=== PATIENT | female | born 1985 | race Two or more races ===

== ENCOUNTER 2016-07-29 12:54 | Outpatient (CLI) | payer OTHER | END 2016-07-29 12:55 | disposition home or self-care (01) | DX: R06.02 Shortness of breath (principal) ==

== ENCOUNTER 2017-10-16 15:14 | Emergency (ER) | payer OTHER ==
[2017-10-16 15:39] LABS: BASOPHILS # (AUTO) 0.1 10^3/uL (0.0-0.1); BASOPHILS % (AUTO) 0.5 %; EOSINOPHILS # (AUTO) 0.1 10^3/uL (0.0-0.7); EOSINOPHILS % (AUTO) 0.7 %; HGB - HEMOGLOBIN 15.5 g/dL (12.0-16.0); LYMPHOCYTES # (AUTO) 2.5 10^3/uL (1.5-3.5); LYMPHOCYTES % (AUTO) 22.4 %; MEAN CORPUSCULAR HEMOGLOBIN 29.5 pg (27.0-31.0); MEAN CORPUSCULAR HGB CONC 34.6 g/dL (32.0-36.0); MEAN CORPUSCULAR VOLUME 85.2 fL (81.0-99.0); MEAN PLATELET VOLUME 8.4 fL (7.9-10.8); MONOCYTES # (AUTO) 0.5 10^3/uL (0.0-1.0); MONOCYTES % (AUTO) 4.5 %; NEUTROPHILS # (AUTO) 7.9 10^3/uL (1.5-6.6); NEUTROPHILS % (AUTO) 71.9 %; PLT - PLATELET COUNT 225 10^3/uL (130-450); RED BLOOD COUNT 5.26 10^6/uL (4.20-5.40); RED CELL DISTRIBUTION WIDTH 12.5 % (12.0-15.0)
[2017-10-16] MEDS ORDERED: SODIUM CHLORIDE 0.9% 1,000 ML IV ONE (15:40)
[2017-10-16] MEDS: PROMETHAZINE INJ 25 MG in SODIUM CHLORIDE 0.9% 50 ML IV STA ×2 (15:47→16:04)
[2017-10-16 15:54] LABS: ALBUMIN 5.2 g/dL (3.2-5.5); ALBUMIN/GLOBULIN RATIO 1.4 (1.0-2.2); BILIRUBIN,TOTAL 1.1 mg/dL (0.2-1.0); CALCIUM 9.8 mg/dL (8.5-10.3); CREATININE 0.7 mg/dL (0.4-1.0); TOTAL PROTEIN 8.8 g/dL (6.7-8.2)
[2017-10-16] MEDS ORDERED: ACETAMINOPHEN 1,000 MG/100 ML 100 ML IV STA (15:55)
[2017-10-16] MEDS ORDERED: ONDANSETRON 4 MG/2 ML VIAL IVP STA (15:55)
--- NOTE | 2017-10-16 16:02 | ED Physician Documentation ---
History of Present Illness - Stated complaint Stated Complaint: ABD PX/VOMITING - Chief complaint Chief Complaint: Abd Pain - Additonal information Additional information: hx from pt 32 female healthy no porior abd surgery not preg has IUD breast feeding a 20 m old had vegan mac n cheese for lunch while out for a run developed severe upper abd pain radiating to the back - intermittent severe colicky NV no diarrhea no fever hx similar dx GB dysfxn by YG Review of Systems Constitutional: denies: Fever, Chills Cardiac: denies: Chest pain / pressure Respiratory: denies: Dyspnea GI: reports: Abdominal Pain, Nausea, Vomiting. denies: Diarrhea : denies: Now EGA Endocrine: denies: Easy bruising / bleeding Immunocompromised: denies: Immunocompromised PD PAST MEDICAL HISTORY - Past Medical History Past Medical History: Yes Other Past Medical History: IBS, renauds - Past Surgical History Past Surgical History: No - Present Medications Home Medications: Ambulatory Orders Medication Instructions Recorded Confirmed No Known Home Medications [No 10/16/17 10/16/17 Known Home Medications] - Allergies Allergies/Adverse Reactions: Allergies Allergy/AdvReac Type Severity Reaction Status Date / Time sodium hypochlorite solution Allergy Anaphylaxis Verified 10/16/17 15:23 [From Anasept] - Social History Does the pt smoke?: No Smoking Status: Never smoker Does the pt drink ETOH?: Yes Does the pt have substance abuse?: No - Immunizations Immunizations are current?: Yes PD ED PE NORMAL - Vitals Vital signs reviewed: Yes - Cardiac Cardiac: No murmur - Respiratory Respiratory: No respiratory distress - Abdomen Abdomen: Soft, Non tender, Other (but int curls up is sever pain clutching her flanks and vomiting, then sx relent again) - Back Back: No CVA TTP (having pain but palp does not change) - Derm Derm: Normal color - Neuro Neuro: Alert and oriented X 3 Results - Vitals Vitals: Vital Signs - 24 hr 10/16/17 10/16/17 15:20 17:23 Temperature 36.6 C Heart Rate 75 68 Respiratory 22 16 Rate Blood Pressure 96/61 93/54 L O2 Saturation 100 99 Oxygen O2 Source Room air - Labs Labs: Laboratory Tests 10/16/17 10/16/17 10/16/17 15:30 15:30 15:30 WBC 11.0 H RBC 5.26 Hgb 15.5 Hct 44.9 MCV 85.2 MCH 29.5 MCHC 34.6 RDW 12.5 Plt Count 225 MPV 8.4 Neut # 7.9 H Lymph # 2.5 Barbour # 0.5 Eos # 0.1 Baso # 0.1 Absolute Nucleated RBC 0.00 Nucleated RBC % 0.0 Sodium 135 Potassium 3.6 Chloride 96 L Carbon Dioxide 28 Anion Gap 11.0 BUN 13 Creatinine 0.7 Estimated GFR (MDRD) 98 Glucose 96 Calcium 9.8 Total Bilirubin 1.1 H AST 30 ALT 23 Alkaline Phosphatase 72 Total Protein 8.8 H Albumin 5.2 Globulin 3.6 Albumin/Globulin Ratio 1.4 Lipase 29 Serum HCG, Qual NEGATIVE Urine Color Urine Clarity Urine pH Ur Specific Nebo Urine Protein Urine Glucose (UA) Urine Ketones Urine Occult Blood Urine Nitrite Urine Bilirubin Urine Urobilinogen Ur Leukocyte Esterase Ur Microscopic Review Urine Culture Comments 10/16/17 17:05 WBC RBC Hgb Hct MCV MCH MCHC RDW Plt Count MPV Neut # Lymph # Barbour # Eos # Baso # Absolute Nucleated RBC Nucleated RBC % Sodium Potassium Chloride Carbon Dioxide Anion Gap BUN Creatinine Estimated GFR (MDRD) Glucose Calcium Total Bilirubin AST ALT Alkaline Phosphatase Total Protein Albumin Globulin Albumin/Globulin Ratio Lipase Serum HCG, Qual Urine Color YELLOW Urine Clarity CLEAR Urine pH 7.5 Ur Specific Nebo 1.010 Urine Protein NEGATIVE Urine Glucose (UA) NEGATIVE Urine Ketones TRACE Urine Occult Blood NEGATIVE Urine Nitrite NEGATIVE Urine Bilirubin NEGATIVE Urine Urobilinogen 0.2 (NORMAL) Ur Leukocyte Esterase NEGATIVE Ur Microscopic Review NOT INDICATED Urine Culture Comments NOT INDICATED - Rads (name of study) abd sono Radiology: See rad report (neg - no hydro or gallstones) PD MEDICAL DECISION MAKING - ED course ED course: WBC 11 and bili 1..1 but sono neg for gallstones wall thickening dilated CBD etc UA neg for blood and infection and no hydro on CT no lower abd / pelvic pain to suggest torsion completely atypical for appy after ofirmev and zofran all sx gone pt non tender on serial abd exams able to tolerate PO unclear what did cause the pain she advises had similar pain 10 yr ago and had a + HIDA and dx biliary dysfxn so maybe it was that again but given reassuring wup and resolved sx feels safe to dc home Departure - Departure Disposition: Home, Self Care Clinical Impression: Abdominal pain Qualifiers: Abdominal location: right upper quadrant Qualified Code(s): R10.11 - Right upper quadrant pain Condition: Good Instructions: Abdominal Pain Follow-Up: VERNA PEARCE [Primary Care Provider] - (if the symptoms return ) Comments: The ultrasound was fine - no gallstones and no kidney stones and no sign of internal bleeding The urine tests did not show blood or infection Your kidney function, liver function and pancreas functions tests were all fine too - except for a very slightly elevated bilirubin which can be a sign of gallbladder problems but the ultrasound of the gallbladder was fine I am not saying nothing is wrong - it could be gallbladder dysfunction again like 10 years ago If the symptoms come back, you might need to see a surgeon, get another HIDA scan or perhaps a CT scan But given the reassuring work up and because you feel better, I think it is safe for you to go home for now
[2017-10-16 16:28] LABS: HCG,QUALITATIVE BLOOD NEGATIVE
--- NOTE | 2017-10-16 17:03 | Ultrasound Report ---
EXAM: ABDOMEN ULTRASOUND EXAM DATE: 10/16/2017 04:41 PM. CLINICAL HISTORY: Abdomen pain radiating to back. COMPARISON: None. TECHNIQUE: Real-time scanning was performed with static images obtained. FINDINGS: Liver: Normal in size and echotexture. 15.2 cm. Main portal vein flow: Hepatopetal. Gallbladder: Normal. No stones, wall thickening, or sonographic Ojeda's sign. Biliary System: Common bile duct measures 5 mm. No intrahepatic or extrahepatic ductal dilatation. Pancreas: Visualized portion is unremarkable. Kidneys: Right: 11.3 cm longitudinally. Normal. No contour-deforming mass, stones, or hydronephrosis. Left: 11.0 cm longitudinally. Normal. No contour-deforming mass, stones, or hydronephrosis. Spleen: 9.0 cm longitudinally. Normal in size and echotexture. Aorta and Inferior Vena Cava: Unremarkable. Other: No free fluid. IMPRESSION: Normal abdomen ultrasound. [facility] Referring Provider Line: [phone] SITE ID: [id number]
[2017-10-16 17:19] LABS: BILIRUBIN,URINE NEGATIVE (NEGATIVE); GLUCOSE, URINE (UA) NEGATIVE (NEGATIVE); KETONES,URINE (UA) TRACE mg/dL (NEGATIVE); LEUKOCYTE ESTERASE, URINE NEGATIVE (NEGATIVE); NITRITE,URINE NEGATIVE (NEGATIVE); OCCULT BLOOD,URINE NEGATIVE (NEGATIVE); PH,URINE 7.5 PH (5.0-7.5); PROTEIN,URINE NEGATIVE (NEGATIVE); UROBILINOGEN,URINE 0.2 (NORMAL) E.U./dL (NORMAL)
[2017-10-16 17:23] VITALS: BP 93/54
[2017-10-16 17:25] LABS: CLARITY,URINE CLEAR (CLEAR)
== END 2017-10-16 17:20 | disposition home or self-care (01) ==
LOC: ED 15:14
DX: R10.11 Right upper quadrant pain (principal); R79.89 Other specified abnormal findings of blood chemistry; R11.2 Nausea with vomiting, unspecified; Z87.19 Personal history of other diseases of the digestive system
CPT/HCPCS: 36415; 76700; 80053; 81003; 83690; 84703; 85025; 96361; 96365; 96375; 99283; 99284; J0131; J7040; 81001; 87086

== ENCOUNTER 2019-02-10 18:09 | Emergency (ER) | payer OTHER ==
[2019-02-10 18:19] VITALS: BP 114/65
--- NOTE | 2019-02-10 18:41 | ED Physician Documentation ---
PD HPI SKIN - Stated complaint Stated Complaint: MASTITIS - Chief complaint Chief Complaint: General - History obtained from History obtained from: Patient - History of Present Illness Timing - onset: Yesterday Timing - duration: Days (2) Timing - details: Abrupt onset, Still present Location: Chest (right upper breast at about 12-1 o'clock position.) Quality / character: Painful, Burning, Discolored (red), Swelling. No: Itchy, Vesicular Associated symptoms: Fever (last night and today), Myalgias. No: Headache Contributing factors: Other (breast feeding 4 month old) Similar symptoms before: Diagnosis (has had 2 prior episodes of mastitis in past 4 months in other areas of breasts, each cleared fully with abx.) Recently seen: Not recently seen Review of Systems Constitutional: reports: Fever, Chills, Myalgias Nose: denies: Rhinorrhea / runny nose, Congestion Throat: denies: Sore throat Respiratory: denies: Cough GI: reports: Nausea. denies: Abdominal Pain, Vomiting, Diarrhea Skin: reports: Lesions (right upper breast with warmth and swelling, tenderness.) PD PAST MEDICAL HISTORY - Past Medical History Past Medical History: No - Past Surgical History Past Surgical History: No - Present Medications Home Medications: Ambulatory Orders Medication Instructions Recorded Confirmed Naproxen 500 mg PO BID #20 tablet 02/10/19 Ondansetron Odt [Zofran] 4 mg TL Q6H PRN #10 tablet 02/10/19 cephALEXin [Cephalexin] 500 mg PO QID #28 tablet 02/10/19 - Allergies Allergies/Adverse Reactions: Allergies Allergy/AdvReac Type Severity Reaction Status Date / Time sodium hypochlorite solution Allergy Anaphylaxis Verified 10/16/17 15:23 [From Anasept] Opioids - Morphine Analogues AdvReac Nausea Verified 02/10/19 18:19 - Social History Does the pt smoke?: No Smoking Status: Never smoker Does the pt drink ETOH?: Yes Does the pt have substance abuse?: No - Immunizations Immunizations are current?: Yes PD ED PE NORMAL - Vitals Vital signs reviewed: Yes - General General: Alert and oriented X 3, No acute distress, Well developed/nourished - Neck Neck: Supple, no meningeal sign, No adenopathy - Cardiac Cardiac: RRR, No murmur - Respiratory Respiratory: Clear bilaterally - Derm Derm: Warm and dry, Other (right breast with redness and tenderness with firm swelling and no fluctuance at upper breast area. c/w mastitis. ) Results - Vitals Vitals: Vital Signs - 24 hr 02/10/19 18:16 Temperature 36.7 C Heart Rate 74 Respiratory 18 Rate Blood Pressure 114/65 O2 Saturation 98 Oxygen O2 Source Room air PD MEDICAL DECISION MAKING - ED course Complexity details: considered differential, d/w patient Departure - Departure Disposition: Home, Self Care Clinical Impression: Acute mastitis of right breast Condition: Stable Record reviewed to determine appropriate education?: Yes Instructions: ED Breast Infec Prescriptions: cephALEXin [Cephalexin] 500 mg PO QID #28 tablet Naproxen 500 mg PO BID #20 tablet Ondansetron Odt [Zofran] 4 mg TL Q6H PRN #10 tablet PRN Reason: Nausea / Vomiting Comments: Warm ice compresses to the area to improve blood flow and help promote flow from the ducts. Continue breast-feeding or pumping. Cephalexin 500 mg 4 times a day for a week. Use of probiotics to help mitigate any intestinal upset. Stay well-hydrated. Anti-inflammatory such as naproxen twice daily for the next 7 to 10 days to help with inflammation fevers and pains. Add Tylenol if needed. Add ondansetron if needed for nausea. Recheck if not improving well over the next several days return sooner if worsening. Discharge Date/Time: 02/10/19 19:11
[2019-02-10] MEDS ORDERED: cephALEXin 250 MG CAPSULE PO STA (18:49)
[2019-02-10] MEDS ORDERED: IBUPROFEN 600 MG TABLET PO STA (18:49)
== END 2019-02-10 19:11 | disposition home or self-care (01) ==
LOC: ED 18:09
DX: N61.0 Mastitis without abscess (principal); R11.0 Nausea
CPT/HCPCS: 99283; 99284; A9270

== ENCOUNTER 2022-10-10 09:56 | Outpatient (CLI) | payer OTHER ==
[2022-10-10 17:49] LABS: BASOPHILS # (AUTO) 0.1 10^3/uL (0.0-0.1); BASOPHILS % (AUTO) 0.8 %; EOSINOPHILS % (AUTO) 0.5 %; HCT - HEMATOCRIT 38.3 % (37.0-47.0); HGB - HEMOGLOBIN 12.7 g/dL (12.0-16.0); LYMPHOCYTES # (AUTO) 2.3 10^3/uL (1.5-3.5); MEAN CORPUSCULAR HEMOGLOBIN 28.9 pg (27.0-31.0); MEAN CORPUSCULAR HGB CONC 33.2 g/dL (32.0-36.0); MEAN PLATELET VOLUME 11.2 fL (7.9-10.8); MONOCYTES # (AUTO) 0.4 10^3/uL (0.0-1.0); MONOCYTES % (AUTO) 5.5 %; NEUTROPHILS # (AUTO) 4.8 10^3/uL (1.5-6.6); NEUTROPHILS % (AUTO) 62.9 %; PLT - PLATELET COUNT 294 10^3/uL (130-450); WHITE BLOOD COUNT 7.7 x10^3/uL (4.8-10.8)
[2022-10-10 18:10] LABS: ALBUMIN 4.1 g/dL (3.2-5.5); ALBUMIN/GLOBULIN RATIO 1.2 (1.0-2.2); ALKALINE PHOSPHATASE 44 IU/L (42-121); ALT ALANINE AMINOTRANSFERASE 16 IU/L (10-60); AST ASPARTATE AMINOTRANSFERASE 20 IU/L (10-42); BILIRUBIN,TOTAL 0.8 mg/dL (0.2-1.0); BUN - BLOOD UREA NITROGEN 10 mg/dL (6-20); CALCIUM 9.2 mg/dL (8.5-10.3); CARBON DIOXIDE - CO2 28 mmol/L (21-32); CHLORIDE 104 mmol/L (101-111); CREATININE 0.6 mg/dL (0.4-1.0); GFR - MDRD 114 (>89); GLUCOSE 90 mg/dL (70-100); POTASSIUM 3.9 mmol/L (3.5-5.0); SODIUM 138 mmol/L (135-145); TOTAL PROTEIN 7.5 g/dL (6.7-8.2)
[2022-10-10 18:19] LABS: THYROID STIMULATING HORMONE 1.32 uIU/mL (0.34-5.60)
[2022-10-10 18:47] LABS: CRP - C-REACTIVE PROTEIN < 1.0 mg/dL (0-1.0)
== END 2022-10-10 09:57 | disposition home or self-care (01) ==
LOC: LAB.N 09:56
PROVIDERS: ATTEND Nurse Practitioner
DX: R59.1 Generalized enlarged lymph nodes (principal)
CPT/HCPCS: 36415; 80053; 84443; 85025; 86140

== ENCOUNTER 2023-03-01 10:49 | Emergency (ER) | payer OTHER, MEDICAID ==
--- NOTE | 2023-03-01 12:17 | ED Physician Documentation ---
History of Present Illness - Stated complaint Stated Complaint: RT NECK/BREAST PX - Chief complaint Chief Complaint: General - History obtained from History obtained from: Patient - Additonal information Additional information: Previously healthy 37-year-old woman not currently breast-feeding. Never had a mammography. She presents with 9 months of coming and going right-sided what she thinks is lymph node swelling of the neck but more acutely over the last 3 weeks with more significant right breast pain over the last 2 weeks. PD PAST MEDICAL HISTORY - Past Medical History Cardiovascular: None Respiratory: None Neuro: None Endocrine/Autoimmune: None GI: Chronic diarrhea, Other [employer]ER [employer] FOLDING: None : None HEENT: Other Musculoskeletal: None Derm: Eczema - Past Surgical History Past Surgical History: No - Present Medications Home Medications: Ambulatory Orders Medication Instructions Recorded Confirmed No Known Home Medications 03/01/23 03/01/23 - Allergies Allergies/Adverse Reactions: Allergies Allergy/AdvReac Type Severity Reaction Status Date / Time sodium hypochlorite solution Allergy Anaphylaxis Verified 11/27/22 17:05 [From Anasept] Opioids - Morphine Analogues AdvReac Nausea Verified 11/27/22 17:05 - Social History Does the pt smoke?: No Smoking Status: Never smoker Does the pt drink ETOH?: Yes Does the pt have substance abuse?: No - Immunizations Immunizations are current?: Yes PD ED PE NORMAL - Vitals Vital signs reviewed: Yes - General General: Alert and oriented X 3, No acute distress - HEENT HEENT: PERRL, EOMI - Neck Neck: Supple, no meningeal sign, No adenopathy - Cardiac Cardiac: RRR, No murmur - Respiratory Respiratory: No respiratory distress, Clear bilaterally - Extremities Extremities: Other (Done with Maria Isabel ALARCON present and chaperoning. No breast tenderness or masses palpated. No skin changes.) - Neuro Neuro: Alert and oriented X 3, Normal speech Results - Vitals Vitals: Vital Signs - 24 hr 03/01/23 10:57 Temperature 36.1 C L Heart Rate 68 Respiratory 16 Rate Blood Pressure 133/73 H O2 Saturation 99 Oxygen O2 Source Room air PD Medical Decision Making - ED course ED course: 37-year-old woman [facility] of subacute right breast pain. There is no evidence of infection. No palpable masses of lymph nodes or the breast itself. Patient states that her physician sent her here for imaging, unclear what imaging the wanted. I called the base several times to try to get a hold of the physician's nurse and left several messages. Subsequently also called to be switchboard who notified me that this patient's physician is on leave and so was the nurse that sent her here. We are unable to perform mammography and ultrasonography for noninfection related complaints in the emergency department, per radiology protocol so I left another message with the patient's nurse that she would need mammography and ultrasonography as an outpatient. Departure - Departure Disposition: 01 Home, Self Care Clinical Impression: Breast pain Condition: Good Record reviewed to determine appropriate education?: Yes Comments: Unfortunately the nurse at the [facility] sent you here for testing that cannot be done from the emergency department. I tried several times to get a hold of her without success. They need to order mammography and ultrasound as an outpatient. Return if worse.
[2023-03-01 14:07] VITALS: BP 126/75; O2SAT 100
== END 2023-03-01 14:01 | disposition home or self-care (01) ==
LOC: ED 10:49
DX: N64.4 Mastodynia (principal)
CPT/HCPCS: 99281; 99282

== ENCOUNTER 2023-05-10 09:15 | Emergency (ER) | payer OTHER ==
[2023-05-10 09:44] VITALS: O2SAT 100
--- NOTE | 2023-05-10 10:07 | XRAY Report ---
PROCEDURE: Chest 2 View X-Ray INDICATIONS: cough x weeks TECHNIQUE: 2 views of the chest were acquired. COMPARISON: None. FINDINGS: Surgical changes and devices: None. Lungs and pleura: No pleural effusions or pneumothorax. Lungs are clear. No consolidation. Mediastinum: Mediastinal contours appear normal. Heart size is normal. Bones and chest wall: No suspicious bony lesions. Overlying soft tissues appear unremarkable. IMPRESSION: No acute cardiopulmonary process. Reviewed by: Keenan Zuluaga MD on 05/10/2023 10:06 AM [facility] Approved by: Keenan Zuluaga MD on 05/10/2023 10:06 AM [facility] Station ID: [id number]
[2023-05-10] MEDS ORDERED: guaiFENesin/DEXTROMETHORPHAN 10 ML UDC PO STA (10:30)
[2023-05-10] MEDS ORDERED: SODIUM CHLORIDE 0.9% 1,000 ML IV STA (10:30)
[2023-05-10 10:48] LABS: BASOPHILS # (AUTO) 0.1 10^3/uL (0.0-0.1); BASOPHILS % (AUTO) 0.9 %; EOSINOPHILS % (AUTO) 0.2 %; HCT - HEMATOCRIT 42.8 % (37.0-47.0); HGB - HEMOGLOBIN 14.2 g/dL (12.0-16.0); LYMPHOCYTES % (AUTO) 22.3 %; MEAN CORPUSCULAR HEMOGLOBIN 29.1 pg (27.0-31.0); MEAN CORPUSCULAR HGB CONC 33.2 g/dL (32.0-36.0); MEAN CORPUSCULAR VOLUME 87.7 fL (81.0-99.0); MEAN PLATELET VOLUME 9.9 fL (7.9-10.8); MONOCYTES # (AUTO) 0.6 10^3/uL (0.0-1.0); NEUTROPHILS # (AUTO) 6.3 10^3/uL (1.5-6.6); NEUTROPHILS % (AUTO) 69.3 %; PLT - PLATELET COUNT 284 10^3/uL (130-450); RED BLOOD COUNT 4.88 10^6/uL (4.20-5.40); WHITE BLOOD COUNT 9.1 x10^3/uL (4.8-10.8)
[2023-05-10 11:02] LABS: ALBUMIN 4.6 g/dL (3.2-5.5); ALBUMIN/GLOBULIN RATIO 1.5 (1.0-2.2); BILIRUBIN,TOTAL 0.7 mg/dL (0.2-1.0); CALCIUM 9.8 mg/dL (8.5-10.3); CREATININE 0.6 mg/dL (0.6-1.3); POTASSIUM 3.6 mmol/L (3.5-4.5); TOTAL PROTEIN 7.6 g/dL (6.4-8.9)
--- NOTE | 2023-05-10 11:26 | ED Physician Documentation ---
History of Present Illness - Stated complaint Stated Complaint: SOA,SHAKEY,CHEST PRESSURE, - Chief complaint Chief Complaint: Resp - History obtained from History obtained from: Patient - Additonal information Additional information: Patient is a 37-year-old female presenting for evaluation of a productive cough with at times feeling shortness of air for the past few weeks since the end of March. At this morning she reports having a coughing fit and then developing pain to the right side of her chest. She has been having ongoing episodes of palpitations which she describes as feeling like her heart is racing. She does have a visit to cardiology scheduled after the new year and is supposed to get a Holter monitor next month. 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 Patient reports having a Family history of a clotting disorder involving factor II And states that her father has had a blood clot because of this. She herself has not been tested for this clotting disorder.Denies recent travel or immobilization. No leg swelling or pain. Denies hemoptysis. She was recently seen at the walk-in clinic and given an inhaler, steroid course, Tessalon Perles. She states that she does not feel like these are very much helpful. She was also given a prescription for Augmentin because she had been having a sinus pressure but states that this f eels better and she did not take the Augmentin. Review of Systems Constitutional: denies: Fever Nose: reports: Congestion Cardiac: reports: Palpitations Respiratory: reports: Cough GI: denies: Abdominal Pain, Vomiting : denies: Dysuria PD PAST MEDICAL HISTORY - Past Medical History Cardiovascular: None Respiratory: None Neuro: None Endocrine/Autoimmune: None GI: Chronic diarrhea, Other PRIVATE WEALTH ADVISOR: None : None HEENT: Other Musculoskeletal: None Derm: Eczema - Past Surgical History Past Surgical History: No - Present Medications Home Medications: Ambulatory Orders Medication Instructions Recorded Confirmed guaiFENesin/CODEINE [Robitussin AC] 5 - 10 ml PO Q6H PRN #120 ml 05/10/23 - Allergies Allergies/Adverse Reactions: Allergies Allergy/AdvReac Type Severity Reaction Status Date / Time sodium hypochlorite solution Allergy Anaphylaxis Verified 11/27/22 17:05 [From Anasept] Opioids - Morphine Analogues AdvReac Nausea Verified 11/27/22 17:05 - Social History Does the pt smoke?: No Smoking Status: Never smoker Does the pt drink ETOH?: Yes Does the pt have substance abuse?: No - Immunizations Immunizations are current?: Yes PD ED PE NORMAL - General General: Alert and oriented X 3, No acute distress, Well developed/nourished - HEENT HEENT: Atraumatic, Moist mucous membranes, Pharynx benign, Other (Nasal congestion) - Neck Neck: Supple, no meningeal sign - Cardiac Cardiac: RRR, Strong equal pulses, Other (Low sternal and right-sided chest wall tenderness to palpation with no deformities) - Respiratory Respiratory: No respiratory distress, Clear bilaterally - Abdomen Abdomen: Soft, Non tender, Non distended - Derm Derm: Warm and dry - Extremities Extremities: No edema, No calf tenderness / cord - Neuro Neuro: Normal speech Results - Vitals Vitals: Vital Signs - 24 hr 05/10/23 05/10/23 09:36 12:03 Temperature 36.1 C L Heart Rate 69 59 L Respiratory 18 16 Rate Blood Pressure 123/85 H 108/67 O2 Saturation 100 100 Oxygen O2 Source Room air - EKG (time done) 0944 EKG releavant findings:: EKG personally interpreted by author of this note. Relevant findings are: Rate 60, normal sinus rhythm, no STEMI, QTc 398 - Labs Labs: Laboratory Tests 05/10/23 05/10/23 05/10/23 10:38 10:38 10:38 WBC 9.1 RBC 4.88 Hgb 14.2 Hct 42.8 MCV 87.7 MCH 29.1 MCHC 33.2 RDW 12.0 Plt Count 284 MPV 9.9 Neut # (Auto) 6.3 Lymph # (Auto) 2.0 Barbour # (Auto) 0.6 Eos # (Auto) 0.0 Baso # (Auto) 0.1 Absolute Nucleated RBC 0.00 Nucleated RBC % 0.0 D-Dimer 214.3 Sodium 137 Potassium 3.6 Chloride 101 Carbon Dioxide 26 Anion Gap 10.0 BUN 11 Creatinine 0.6 Estimated GFR (MDRD) 114 Glucose 97 Calcium 9.8 Total Bilirubin 0.7 AST 17 ALT 32 Alkaline Phosphatase 45 Total Protein 7.6 Albumin 4.6 Globulin 3.0 Albumin/Globulin Ratio 1.5 Lipase 20 Urine HCG, Qual Nasal Adenovirus (PCR) Nasal B. parapertussis DNA (PCR) Nasal Coronavir 229E PCR Nasal Coronavir HKU1 PCR Nasal Coronavir NL63 PCR Nasal Coronavir OC43 PCR Nasal Enterovir/Rhinovir PCR Nasal Influenza B PCR Nasal Influenza A PCR Nasal Parainfluen 1 PCR Nasal Parainfluen 2 PCR Nasal Parainfluen 3 PCR Nasal Parainfluen 4 PCR Nasal RSV (PCR) Nasal B.pertussis DNA PCR Nasal C.pneumoniae (PCR) Larry Human Metapneumo PCR Nasal M.pneumoniae (PCR) Nasal SARS-CoV-2 (PCR) 05/10/23 05/10/23 11:18 11:27 WBC RBC Hgb Hct MCV MCH MCHC RDW Plt Count MPV Neut # (Auto) Lymph # (Auto) Barbour # (Auto) Eos # (Auto) Baso # (Auto) Absolute Nucleated RBC Nucleated RBC % D-Dimer Sodium Potassium Chloride Carbon Dioxide Anion Gap BUN Creatinine Estimated GFR (MDRD) Glucose Calcium Total Bilirubin AST ALT Alkaline Phosphatase Total Protein Albumin Globulin Albumin/Globulin Ratio Lipase Urine HCG, Qual NEGATIVE Nasal Adenovirus (PCR) NOT DETECTED Nasal B. parapertussis DNA (PCR) NOT DETECTED Nasal Coronavir 229E PCR NOT DETECTED Nasal Coronavir HKU1 PCR NOT DETECTED Nasal Coronavir NL63 PCR NOT DETECTED Nasal Coronavir OC43 PCR NOT DETECTED Nasal Enterovir/Rhinovir PCR DETECTED A Nasal Influenza B PCR NOT DETECTED Nasal Influenza A PCR NOT DETECTED Nasal Parainfluen 1 PCR NOT DETECTED Nasal Parainfluen 2 PCR NOT DETECTED Nasal Parainfluen 3 PCR NOT DETECTED Nasal Parainfluen 4 PCR NOT DETECTED Nasal RSV (PCR) NOT DETECTED Nasal B.pertussis DNA PCR NOT DETECTED Nasal C.pneumoniae (PCR) NOT DETECTED Larry Human Metapneumo PCR NOT DETECTED Nasal M.pneumoniae (PCR) NOT DETECTED Nasal SARS-CoV-2 (PCR) NOT DETECTED PD Medical Decision Making - ED course Complexity details: reviewed results, re-evaluated patient, d/w patient ED course: Patient presenting for evaluation of URI symptoms ongoing since the end of March along with feeling right-sided chest pain this morning after a coughing fit. Reports a family history of factor II clotting deficiency but she herself has not been tested. No chest pain to suggest ACS. Her EKG is reviewed and nonischemic without signs of arrhythmia. Reported having palpitations this morning. Is currently being worked up for her palpitations. Vital signs here are stable. CBC and chemistries were obtained and reviewed without significant findings. D-dimer is negative. Patient is not . Chest x-ray which I reviewed is negative for consolidation or effusion. Patient symptoms are likely related to a viral process. Offered cough medication to help with symptoms which she is agreeable to. Respiratory swab was pending at time of discharge and noted to be positive for rhinovirus. Patient is advised on continued supportive care, need for close follow-up as well as concerning symptoms to return for. Departure - Departure Disposition: 01 Home, Self Care Clinical Impression: Palpitations, Upper respiratory infection Condition: Stable Instructions: ED Viral Syndrome Prescriptions: guaiFENesin/CODEINE [Robitussin AC] 5 - 10 ml PO Q6H PRN #120 ml PRN Reason: Cough Comments: Your chest x-ray is clear and do not see signs of pneumonia. Your blood tests are also reassuring including a marker that looks for signs of a blood clot in your body which is negative. I would make sure you are continuing to hydrate yourself, continue to use your inhaler as needed and have close follow-up with your primary care provider. I have sent a prescription cough medication to [facility] in [place]. Your respiratory panel is pending. This will check for COVID, influenza, RSV and a number of other common cold viruses. We will notify you if it is positive for COVID. Otherwise you can check the patient portal for your results. You should quarantine from others until you know your COVID result. Please continue with acetaminophen or ibuprofen as needed for fevers and body aches, plenty of fluids/hydration and rest. Return to the ER with any worsening symptoms such as difficulty breathing or vomiting. Forms: PCP List Discharge Date/Time: 05/10/23 12:03
[2023-05-10 12:05] VITALS: BP 108/67
[2023-05-10 12:19] LABS: HCG UR QUAL NEGATIVE
[2023-05-10 12:23] LABS: B. PARAPERTUSSIS- RESP PCR PAN NOT DETECTED; B. PERTUSSIS- RESP PCR PANEL NOT DETECTED; C. PNEUMONIAE- RESP PCR PANEL NOT DETECTED; CORONAVIRUS 229E-RESP PCR NOT DETECTED; CORONAVIRUS HKU1-RESP PCR NOT DETECTED; CORONAVIRUS NL63-RESP PCR NOT DETECTED; CORONAVIRUS OC43-RESP PCR NOT DETECTED; HUMAN METAPNEUMOVIRUS NOT DETECTED; INFLUENZA A- RESP PCR PANEL NOT DETECTED; INFLUENZA B - RESP PCR PANEL NOT DETECTED; M. PNEUMONIAE- RESP PCR PANEL NOT DETECTED; PARAINFLUENZA VIRUS 1 NOT DETECTED; PARAINFLUENZA VIRUS 2 NOT DETECTED; PARAINFLUENZA VIRUS 3 NOT DETECTED; PARAINFLUENZA VIRUS 4 NOT DETECTED; RHINOVIRUS/ENTEROVIRUS DETECTED; RSV- RESP PCR PANEL NOT DETECTED; SARS-CoV-2 -RESP PCR PANEL NOT DETECTED
== END 2023-05-10 12:03 | disposition home or self-care (01) ==
LOC: ED 09:15
DX: J06.9 Acute upper respiratory infection, unspecified (principal); B97.89 Other viral agents as the cause of diseases classified elsewhere
CPT/HCPCS: 36415; 71046; 80053; 81025; 83690; 85025; 85379; 87633; 93005; 99284; A9270

== ENCOUNTER 2023-09-16 14:06 | Emergency (ER) | payer OTHER ==
[2023-09-16 14:21] VITALS: O2SAT 100
--- NOTE | 2023-09-16 14:32 | ED Physician Documentation ---
PD HPI CHEST PAIN - Stated complaint Stated Complaint: CHEST PX - Chief complaint Chief Complaint: Resp - Additional information Additional information: 38-year-old female presenting with chest tightness and hemoptysis. Patient states for the last few days she has developed burning type chest pain in her upper chest and upper back. She coughed up a large amount of blood-tinged mucousy material a couple of days ago. She went to an urgent care and they asked her to come to the emergency department. Patient has a family history of factor II clotting disorder and has had some relatives with blood clots. She has never personally had a blood clot. 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.She does not take any blood thinners not on control Review of Systems Constitutional: denies: Fever, Chills Respiratory: denies: Cough PD PAST MEDICAL HISTORY - Past Medical History Past Medical History: Yes Cardiovascular: None Respiratory: None Neuro: None Endocrine/Autoimmune: None GI: Chronic diarrhea, Other REAL ESTATE CLOSING COORDINATOR: None : None HEENT: Other Musculoskeletal: None Derm: Eczema - Past Surgical History Past Surgical History: No - Present Medications Home Medications: Ambulatory Orders Medication Instructions Recorded Confirmed Cetirizine [ZyrTEC] 10 mg PO DAILY 09/16/23 09/16/23 Cholecalciferol (Vitamin D3) 50 mcg PO DAILY 09/16/23 09/16/23 [Vitamin D3] - Allergies Allergies/Adverse Reactions: Allergies Allergy/AdvReac Type Severity Reaction Status Date / Time sodium hypochlorite solution Allergy Anaphylaxis Verified 09/16/23 14:12 [From Anasept] Opioids - Morphine Analogues AdvReac Nausea Verified 09/16/23 14:12 - Social History Does the pt smoke?: No Smoking Status: Never smoker Does the pt drink ETOH?: Yes Does the pt have substance abuse?: No - Immunizations Immunizations are current?: Yes PD ED PE NORMAL - General General: Alert and oriented X 3, No acute distress - HEENT HEENT: Atraumatic, Pharynx benign - Neck Neck: Supple, no meningeal sign - Cardiac Cardiac: RRR - Respiratory Respiratory: No respiratory distress, Clear bilaterally - Extremities Extremities: No deformity, No edema, No calf tenderness / cord Results - Vitals Vitals: Vital Signs - 24 hr 09/16/23 14:10 Temperature 36.5 C Heart Rate 76 Respiratory 16 Rate Blood Pressure 134/85 H O2 Saturation 100 Oxygen O2 Source Room air - Labs Labs: Laboratory Tests 09/16/23 09/16/23 09/16/23 14:36 14:36 14:36 WBC 6.5 RBC 4.90 Hgb 14.3 Hct 42.9 MCV 87.6 MCH 29.2 MCHC 33.3 RDW 12.2 Plt Count 222 MPV 10.5 Neut # (Auto) 4.7 Lymph # (Auto) 1.3 L [place] # (Auto) 0.4 Eos # (Auto) 0.0 Baso # (Auto) 0.0 Absolute Nucleated RBC 0.00 Nucleated RBC % 0.0 D-Dimer 233.5 Sodium 139 Potassium 3.6 Chloride 101 Carbon Dioxide 28 Anion Gap 10.0 BUN 8 Creatinine 0.7 Estimated GFR (MDRD) 95 Glucose 94 Calcium 10.2 Total Bilirubin 0.6 AST 22 ALT 24 Alkaline Phosphatase 57 Total Protein 7.6 Albumin 4.9 Globulin 2.7 Albumin/Globulin Ratio 1.8 - Rads (name of study) cxr Relevant Findings:: EMP independent interpretation of test (clear lungs) PD Medical Decision Making - ED course Complexity details: reviewed old records, reviewed results, re-evaluated patient, considered differential (bronchitis/pna/PE/dissetion (?connective tissue dz?)) ED course: . I reviewed the EKG that was done just prior to her arrival from the urgent care clinic which shows normal sinus rhythm with a rate of 73 normal intervals normal axis no ischemic changes noted. vitals stable here- no tachycardia, tachypnea or hypoxemia, nl sat. nl EKG d dimer negative, nl cxr. she has a photo of her hemoptysis which is generally a large mucous plug with blood streaks stable for outpt management. no hypoxemia, massive hemoptysis or indication for further testing at this time. Departure - Departure Disposition: 01 Home, Self Care Clinical Impression: Bronchitis Instructions: Bronchitis Acute Dc Comments: Your chest x-ray is clear and your D-dimer is reassuring. Statistically most coughing up of blood is related to bronchitis or inflammation of the lung lining and this is still most likely with you. I would reassure you that we do not need to do any more testing at this time. Also seen in indication for antibiotics based on her symptomatology. Would follow your status follow-up with primary care physician if symptoms persist. Forms: PCP List
[2023-09-16 14:45] LABS: BASOPHILS % (AUTO) 0.3 %; EOSINOPHILS % (AUTO) 0.6 %; HCT - HEMATOCRIT 42.9 % (37.0-47.0); HGB - HEMOGLOBIN 14.3 g/dL (12.0-16.0); LYMPHOCYTES # (AUTO) 1.3 10^3/uL (1.5-3.5); LYMPHOCYTES % (AUTO) 19.8 %; MEAN CORPUSCULAR HEMOGLOBIN 29.2 pg (27.0-31.0); MEAN CORPUSCULAR HGB CONC 33.3 g/dL (32.0-36.0); MEAN CORPUSCULAR VOLUME 87.6 fL (81.0-99.0); MEAN PLATELET VOLUME 10.5 fL (7.9-10.8); MONOCYTES # (AUTO) 0.4 10^3/uL (0.0-1.0); MONOCYTES % (AUTO) 6.2 %; NEUTROPHILS # (AUTO) 4.7 10^3/uL (1.5-6.6); NEUTROPHILS % (AUTO) 72.9 %; PLT - PLATELET COUNT 222 10^3/uL (130-450); RED CELL DISTRIBUTION WIDTH 12.2 % (12.0-15.0); WHITE BLOOD COUNT 6.5 x10^3/uL (4.8-10.8)
--- NOTE | 2023-09-16 15:02 | XRAY Report ---
PROCEDURE: Chest 2V INDICATIONS: cough, hemoptysis TECHNIQUE: 2 views of the chest were acquired. COMPARISON: CXR 05/10/2023. FINDINGS: Surgical changes and devices: None. Lungs and pleura: No pleural effusions or pneumothorax. Lungs are clear. Mediastinum: Mediastinal contours appear normal. Heart size is normal. Bones and chest wall: No suspicious bony lesions. Overlying soft tissues appear unremarkable. IMPRESSION: No acute cardiopulmonary process. Consider further evaluation with CT chest with IV contrast. Reviewed by: Keenan Zuluaga MD on 09/16/2023 3:01 PM PDT Approved by: Keenan Zuluaga MD on 09/16/2023 3:01 PM PDT Station ID: [id number]
[2023-09-16 15:08] LABS: ALBUMIN 4.9 g/dL (3.2-5.5); ALBUMIN/GLOBULIN RATIO 1.8 (1.0-2.2); BILIRUBIN,TOTAL 0.6 mg/dL (0.2-1.0); CALCIUM 10.2 mg/dL (8.5-10.3); CREATININE 0.7 mg/dL (0.6-1.3); POTASSIUM 3.6 mmol/L (3.5-4.5); TOTAL PROTEIN 7.6 g/dL (6.4-8.9)
[2023-09-16 15:34] VITALS: BP 128/87
== END 2023-09-16 15:26 | disposition home or self-care (01) ==
LOC: ED 14:06
DX: J40 Bronchitis, not specified as acute or chronic (principal)
CPT/HCPCS: 36415; 80053; 85025; 85379; 99283; 99284

== ENCOUNTER 2023-09-26 13:17 | Outpatient (CLI) | payer OTHER | END 2023-09-26 13:18 | disposition home or self-care (01) | LOC: RT 13:17 | PROVIDERS: ATTEND Internal Medicine | DX: R06.02 Shortness of breath (principal) | CPT/HCPCS: 94010; 94727; 94729 ==

== ENCOUNTER 2024-01-25 13:19 | Outpatient (CLI) | payer OTHER ==
--- NOTE | 2024-01-27 14:55 | MRI Report ---
PROCEDURE: Shoulder RT WO INDICATIONS: RECURRENT DISLOCATION TECHNIQUE: Noncontrast oblique coronal T2 fast spin echo with fat saturation, oblique sagittal T1 spin echo and T2 fast spin echo with fat saturation, axial T1 spin echo and T2 fast spin echo with fat saturation t hrough the shoulder. COMPARISON: None. FINDINGS: Image quality: Excellent. Rotator cuff: Thickened distal supraspinatus tendon at its insertion on humeral head is seen. Low-gra de bursal surface partial-thickness tear involving anterior fibers of distal supraspinatus at its ins ertion on humeral head is also noted. Distal infraspinatus and subscapularis tendons are grossly inta ct. No full-thickness rotator cuff tendon rupture. No rotator cuff muscle atrophy on sagittal images. Bones and bursae: There is no marrow edema. No acute fracture or dislocation. Nonspecific subcortical cystic changes involving lateral humeral head near rotator cuff tendon insertion is seen. No obvious Hill-Sachs deformity or Bankart fracture is seen. Small amount of joint fluid and subacromial subdel toid bursal fluid is seen, no loose bodies. Capsule and soft tissues: There is fraying of anterior inferior glenoid labrum with T2 hyperintense s ignal concerning for subtle anterior inferior labral tear. The long head of the biceps tendon demonst rates normal location and morphology. The rotator interval appears normal, without fibrosis. The co racohumeral ligament is normal in thickness. IMPRESSION: 1. No marrow edema. No acute fracture or dislocation. No definite Hill-Sachs fracture or Bankart frac ture is seen. Small joint effusion, no loose bodies. 2. Finding is concerning for subtle anterior inferior right glenoid labral tear consistent with Banka rt lesion. 3. Tendinosis and low-grade bursal surface partial-thickness tear involving distal supraspinatus. No full-thickness rotator cuff tendon rupture. Reviewed by: Geraldo Malloy MD on 01/27/2024 2:54 PM PDT Approved by: Geraldo Malloy MD on 01/27/2024 2:54 PM PDT Station ID: [id number]
== END 2024-01-25 13:20 | disposition home or self-care (01) ==
LOC: DI 13:19
PROVIDERS: ATTEND Family Medicine
DX: Q79.69 Other Ehlers-Danlos syndromes (principal); M24.419 Recurrent dislocation, unspecified shoulder; M25.411 Effusion, right shoulder; M75.81 Other shoulder lesions, right shoulder